=== PATIENT | female | born 1965 ===

== ENCOUNTER 2021-09-24 07:11 | Inpatient (IN) ==
[~2021-09-24 07:11] MED LIST: Buffered Lidocaine 1% SYRIN 1 ml INTRADERM ONE; Famotidine IV 10 MG/ML 2 ml VIAL (20 mg) IV ONE; Lactated Ringers 1000 ml BAG 1,000 ML IV SCH
[2021-10-01] MEDS ORDERED: Buffered Lidocaine 1% SYRIN 1 ml INTRADERM ONE (06:00)
[2021-10-01] MEDS ORDERED: Vancomycin 1,000 MG VIAL ONE (07:16)
[2021-10-01] MEDS ORDERED: Bupivacaine 0.5% SDV PF 30ML VIAL ONE (07:16)
[2021-10-01] MEDS ORDERED: Lidocaine 1% w EPI 1:200,000 SDV 30 ML VIAL ONE (07:16)
[2021-10-01] MEDS ORDERED: ceFAZolin 2 GM in NS PREMIX 2 GM/100 ML BAG IVPB ONE (12:41)
[2021-10-01] MEDS: Lactated Ringers 1000 ml BAG 1,000 ML IV SCH ×2 (13:00→17:46)
[2021-10-01] MEDS ORDERED: Midazolam 2 mg/2 ml VIAL 1 mg/ml 2 ml VIAL (2 mg) ONE (13:05)
[2021-10-01] MEDS ORDERED: Propofol 10 MG/ML 20 ML BTL ONE (13:05)
[2021-10-01] MEDS ORDERED: Rocuronium 50 mg VIAL 10 mg/ml 5 ml VIAL (50 mg) ONE (13:05)
[2021-10-01] MEDS ORDERED: fentaNYL 100 mcg/2 ml 50 MCG/ML VIAL ONE (13:05)
[2021-10-01] MEDS ORDERED: Lidocaine 2% PF 5 ML VIAL ONE (13:05)
[2021-10-01] MEDS ORDERED: Dexamethasone IV 4 MG/ML VIAL 1 ml VIAL ONE (13:34)
[2021-10-01] MEDS ORDERED: HYDROmorphone 0.5 MG/0.5 ML SYRINGE ONE ×4 (13:38→15:25)
[2021-10-01] MEDS ORDERED: diPHENhydraMINE IV 50 MG/ML 1 ml VIAL (BENADRYL) IV PRN ×2 (13:52→15:32)
[2021-10-01] MEDS ORDERED: HYDROmorphone 1 MG/1 ML SYRINGE IV PRN (13:52)
[2021-10-01] MEDS ORDERED: Prochlorperazine 5 mg/ml 2 ml VIAL (10 mg) IV PRN (13:52)
[2021-10-01] MEDS ORDERED: Naloxone 0.4 mg VIAL 0.4 mg/ml 1 ml VIAL IV PRN (13:52)
[2021-10-01] MEDS ORDERED: Ondansetron 4 mg VIAL 2 MG/ML 2 ml VIAL ONE (14:05)
[2021-10-01] MEDS ORDERED: Phenylephrine 40 mcg/mL 10mL (400mcg) SYRINGE ONE ×2 (14:21→15:08)
[2021-10-01] MEDS ORDERED: Magnesium Hydroxide LIQ 30 ML UDC PO PRN (15:32)
[2021-10-01] MEDS ORDERED: diPHENhydraMINE 25 mg TAB PO PRN (15:32)
[2021-10-01] MEDS ORDERED: Ondansetron ODT 4 mg TAB 4 MG TAB PO PRN (15:32)
[2021-10-01] MEDS ORDERED: Morphine 2 MG/ML SYRINGE IV PRN (15:32)
[2021-10-01] MEDS ORDERED: Ondansetron 4 mg VIAL 2 MG/ML 2 ml VIAL IV PRN (15:32)
[2021-10-01] MEDS ORDERED: Albuterol HFA INHALER 8 gm MDI INH PRN (15:44)
[2021-10-01] MEDS ORDERED: Lactated Ringers 1000 ml BAG 1,000 ML IV SCH (16:00)
[2021-10-01] MEDS: ceFAZolin 1 GM ADVAN 1 GM in NS 0.9% 50 ML 50 ML IVPB SCH (20:11)
[2021-10-01] MEDS: Magnesium Hydroxide LIQ 30 ML UDC PO SCH (20:13)
[2021-10-01] MEDS ORDERED: NS 0.9% 1,000 ML IV ONE (22:30)
[2021-10-01] MEDS: NS 0.9% 1,000 ML IV SCH (23:33)
[2021-10-02] MEDS: ceFAZolin 1 GM ADVAN 1 GM in NS 0.9% 50 ML 50 ML IVPB SCH ×2 (04:29→13:17)
[2021-10-02 06:09] LABS: Hematocrit 27 % (35-47); Mean Platelet Volume 7.7 fL (7.4-10.4); Platelet Count 264 10^3/uL (150-450)
[2021-10-02 06:25] LABS: Calcium 7.4 mg/dL (8.6-10.3); Potassium 3.8 mmol/L (3.5-5.0); eGFR CKD-EPI 111.5 (>60)
[2021-10-02] MEDS ORDERED: Flu vaccine *QUAD* 2021-22* 0.5 ML SYRINGE IM ONE (09:00)
[2021-10-02] MEDS: Vitamin THERAPEUTIC TAB PO SCH (09:01)
[2021-10-02] MEDS: Magnesium Hydroxide LIQ 30 ML UDC PO SCH ×2 (09:12→20:02)
[2021-10-02] MEDS: NS 0.9% 1,000 ML IV SCH ×2 (19:58→21:59)
[2021-10-02] MEDS ORDERED: Lactated Ringers 500 ml BAG 500 ML IV ONE (20:11)
[2021-10-02 20:42] LABS: Hematocrit 22 % (35-47); Hemoglobin 7.5 g/dL (12.0-16.0)
[2021-10-03] MEDS ORDERED: Lactated Ringers 500 ml BAG 500 ML IV ONE (01:15)
[2021-10-03 06:25] LABS: Hematocrit 20 % (35-47); Hemoglobin 6.8 g/dL (12.0-16.0); Platelet Count 167 10^3/uL (150-450)
[2021-10-03] MEDS: NS 0.9% 1,000 ML IV SCH ×2 (07:04→17:26)
[2021-10-03] MEDS: Vitamin THERAPEUTIC TAB PO SCH (09:29)
[2021-10-03] MEDS: Magnesium Hydroxide LIQ 30 ML UDC PO SCH ×2 (09:29→20:33)
[2021-10-03] MEDS ORDERED: Iron Sucrose 200 MG in NS 0.9% 100 ml BAG 100 ML IVPB ONE (11:00)
[2021-10-03 14:27] LABS: Hematocrit 19 % (35-47); Hemoglobin 6.5 g/dL (12.0-16.0)
[2021-10-04] MEDS: NS 0.9% 1,000 ML IV SCH (03:39)
[2021-10-04 05:33] LABS: Hematocrit 21 % (35-47); Hemoglobin 6.9 g/dL (12.0-16.0); Platelet Count 188 10^3/uL (150-450)
[2021-10-04] MEDS: Vitamin THERAPEUTIC TAB PO SCH (08:13)
[2021-10-04] MEDS: Magnesium Hydroxide LIQ 30 ML UDC PO SCH ×2 (08:14→21:11)
[2021-10-04] MEDS: Lactulose 30 ml UDC PO PRN ×2 (08:16→21:07)
[2021-10-04 13:59] LABS: Hematocrit 21 % (35-47); Hemoglobin 7.2 g/dL (12.0-16.0)
[2021-10-05 06:29] LABS: Hematocrit 21 % (35-47); Hemoglobin 7.1 g/dL (12.0-16.0); Platelet Count 206 10^3/uL (150-450)
[2021-10-05] MEDS: Magnesium Hydroxide LIQ 30 ML UDC PO SCH ×2 (08:05→21:07)
[2021-10-05] MEDS: Vitamin THERAPEUTIC TAB PO SCH (08:05)
[2021-10-05] MEDS: Lactulose 30 ml UDC PO PRN (16:20)
[2021-10-06 06:13] LABS: Hematocrit 20 % (35-47); Hemoglobin 6.5 g/dL (12.0-16.0); Mean Platelet Volume 7.6 fL (7.4-10.4); Platelet Count 253 10^3/uL (150-450)
[2021-10-06] MEDS: Lactulose 30 ml UDC PO PRN (07:02)
[2021-10-06] MEDS: Magnesium Hydroxide LIQ 30 ML UDC PO SCH ×2 (08:56→20:30)
[2021-10-06] MEDS: Vitamin THERAPEUTIC TAB PO SCH (09:05)
[2021-10-07] MEDS: Vitamin THERAPEUTIC TAB PO SCH (08:26)
[2021-10-07] MEDS: Magnesium Hydroxide LIQ 30 ML UDC PO SCH ×2 (08:27→20:54)
[2021-10-07 10:45] LABS: Hematocrit 22 % (35-47); Hemoglobin 7.4 g/dL (12.0-16.0)
[2021-10-08] MEDS: Vitamin THERAPEUTIC TAB PO SCH (09:15)
[2021-10-08] MEDS: Magnesium Hydroxide LIQ 30 ML UDC PO SCH (09:19)
[2021-10-08 11:41] VITALS: BP 110/78
== END 2021-10-08 13:43 | disposition short-term general hospital (02) | DRG 470 ==
LOC: AA 07:11 → SSU 10-01 17:41
PROVIDERS: ADMIT Orthopaedic Surgery; ATTEND Orthopaedic Surgery

== ENCOUNTER 2021-09-24 10:21 | Observation (INO) ==
[2021-09-24] MEDS ORDERED: NS 0.9% 1000 ml BAG 1,000 ML IV ONE (11:16)
[2021-09-24 11:56] LABS: ABS Basophils 0.1 10^3/ul (0-0.2); ABS Eosinophils 0.1 10^3/ul (0-0.6); ABS Lymphocytes 1.3 10^3/ul (1.0-4.8); ABS Monocytes 0.7 10^3/ul (0-0.8); Eosinophil % 1.3 %; Hematocrit 37 % (35-47); Hemoglobin 12.4 g/dL (12.0-16.0); Lymphocyte % 14.1 %; Mean Corpuscular HGB Conc 34 g/dL (31-36); Mean Corpuscular Hemoglobin 32 pg (27-31); Mean Corpuscular Volume 94 fL (80-97); Mean Platelet Volume 7.6 fL (7.4-10.4); Platelet Count 330 10^3/uL (150-450); Red Cell Distribution Width 16 % (10-15); White Blood Count 9.2 10^3/uL (3.5-10.8)
[2021-09-24 12:16] LABS: Calcium 8.7 mg/dL (8.6-10.3); Magnesium 1.9 mg/dL (1.9-2.7); Potassium 4.1 mmol/L (3.5-5.0); eGFR CKD-EPI 109.1 (>60)
[2021-09-24] MEDS ORDERED: Al Hydrox/Mg Hydrox/Simet LIQ 30 ML UDC PO PRN (13:56)
[2021-09-24] MEDS ORDERED: Albuterol HFA INHALER 8 gm MDI INH PRN (13:58)
[2021-09-24] MEDS: Enoxaparin 40 MG/0.4 ML SYR SUBCUT SCH (14:23)
[2021-09-24 17:25] LABS: Urine Appearance Clear; Urine Bilirubin Negative (Negative); Urine Blood Negative (Negative); Urine Color Yellow; Urine Glucose Negative (Negative); Urine Ketones Negative (Negative); Urine Nitrite Negative (Negative); Urine Protein Negative (Negative); Urine Specific Gravity 1.012 (1.002-1.030); Urine Urobilinogen Negative (Negative)
[2021-09-25] MEDS ORDERED: GLUCOS SUL PO SCH (09:00)
[2021-09-25] MEDS ORDERED: [UNRECOGNIZED DRUG - OTHER] PO SCH (09:00)
[2021-09-25] MEDS ORDERED: GLUCOSAMINE 500 MG PO SCH (10:00)
[2021-09-25 11:06] VITALS: BP 98/58
[2021-09-25] MEDS: Enoxaparin 40 MG/0.4 ML SYR SUBCUT SCH (14:35)
== END 2021-09-25 15:00 | disposition home or self-care (01) ==
LOC: ED 10:21 → EDHOLD 14:00 → INTOOBSV 14:00 → MED 16:17
PROVIDERS: ADMIT Hospitalist; ATTEND Hospitalist

== ENCOUNTER 2021-10-08 13:43 | Inpatient (IN) ==
[2021-10-08] MEDS ORDERED: Morphine 2 MG/ML SYRINGE IV PRN (14:06)
[2021-10-08] MEDS ORDERED: Ondansetron ODT 4 mg TAB 4 MG TAB PO PRN (14:06)
[2021-10-08] MEDS ORDERED: Lactulose 30 ml UDC PO PRN (14:06)
[2021-10-08] MEDS ORDERED: diPHENhydraMINE IV 50 MG/ML 1 ml VIAL (BENADRYL) IV PRN (14:06)
[2021-10-08] MEDS ORDERED: Ondansetron 4 mg VIAL 2 MG/ML 2 ml VIAL IV PRN (14:06)
[2021-10-08] MEDS ORDERED: diPHENhydraMINE 25 mg TAB PO PRN (14:06)
[2021-10-08] MEDS ORDERED: Magnesium Hydroxide LIQ 30 ML UDC PO PRN (14:06)
[2021-10-08] MEDS ORDERED: Albuterol HFA INHALER 8 gm MDI INH PRN (14:14)
[2021-10-08] MEDS: Magnesium Hydroxide LIQ 30 ML UDC PO SCH (20:54)
[2021-10-09] MEDS: Magnesium Hydroxide LIQ 30 ML UDC PO SCH ×2 (10:42→20:18)
[2021-10-09] MEDS: Vitamin THERAPEUTIC TAB PO SCH (10:47)
[2021-10-10 07:43] VITALS: BP 106/71
[2021-10-10] MEDS: Magnesium Hydroxide LIQ 30 ML UDC PO SCH (08:10)
[2021-10-10] MEDS: Vitamin THERAPEUTIC TAB PO SCH (09:17)
[2021-10-10 12:28] LABS: Rapid COVID-19 Molecular Undetected (Undetected)
== END 2021-10-10 14:30 | disposition home or self-care (01) | DRG 561 ==
LOC: SSU 13:43
PROVIDERS: ADMIT Orthopaedic Surgery; ATTEND Orthopaedic Surgery